=== PATIENT | female | born 1965 | race Caucasian/White ===

== ENCOUNTER 2025-07-11 10:42 | Inpatient (IN) ==
--- NOTE | 2025-07-11 11:07 | Emergency Department Note ---
Impression & Plan Pulmonary embolism, DVT (deep venous thrombosis) ED Provider Note ED Provider Note NAME: MEIR MEJIA AGE:60 SEX: Female : 1965 ARRIVES VIA: Private vehicle INFORMANT: Patient ED PROVIDER(s): Mitzy Herman DO CHIEF COMPLAINT: Referred by PCP HPI: This is a 60-year-old female who presents to the emergency department after undergoing an outpatient CT of the chest today as follow-up from a recent admission for COVID and pneumonia. She states her family doctor called her shortly after she returned home stating that she needed to come to the emergency department because the CAT scan showed extensive blood clots. She denies any prior history in her or any family members of blood clots. No recent prolonged travel. No use of OCPs/HRT. She states today is her last dose of the antibiotic course she was prescribed for her pneumonia. She reports she has been feeling improved over the course of the last week, has been back to work this week. She states she still notes she is slightly winded with exertion but denies chest pain, worsening cough, palpitations, leg swelling, or recurrent fevers. PAST MEDICAL HISTORY:See Below PAST SURGICAL HISTORY:See Below FAMILY HISTORY:See Below SOCIAL HISTORY:See Below HOME MEDICATIONS:See Below ALLERGIES:See Below VITALS:See Below PHYSICAL EXAMINATION: GENERAL: alert, well appearing, well nourished, no distress, non-toxic EYE EXAM: normal conjunctiva, PERRL and EOM's grossly intact OROPHARYNX: no exudate, no erythema, lips, buccal mucosa, and tongue normal and mucous membranes are moist NECK: supple, no nuchal rigidity, no adenopathy, non-tender LUNGS: Clear to auscultation. Normal chest wall mechanics, no w/r/r HEART: no murmurs, S1 normal and S2 normal ABDOMEN: abdomen soft, non-tender, normo-active bowel sounds, no masses, no rebound or guarding. SKIN: no rashes, petechiae, orbruising UPPER EXTREMITIES: upper extremities are grossly normal. FROM, nml pulses b/l. LOWER EXTREMITIES: No pitting edema. FROM, nml pulses b/l. NEURO EXAM: Normal sensorium, cranial nerves II-XII grossly intact, normal speech, no facial droop,nogross weakness of arms, no gross weakness of legs. Gross sensation intact. No ataxia. Vital Signs: reviewed and remarkable Differential Diagnosis: pneumonia, bronchitis, COPD/Asthma exacerbation, pneumothorax, pulmonary embolism, congestive heart failure, acute coronary syndrome, as well as others were considered MEDICAL DECISION MAKING: This is a 60-year-old female presents to the emergency department after she was contacted by her PCP and told to come to the emergency department due to an abnormal outpatient CT of her chest showing pulmonary embolism. Patient with recent admission, COVID and multifocal pneumonia. Patient afebrile and hemodynamically stable on arrival. Labs drawn and sent, IV established, EKG performed at bedside and interpreted by me and the patient was monitored on telemetry. Patient was not hypoxic with ambulatory trial although did appear slightly tachypneic and admitted to slight dyspnea. Given extent of pulmonary embolism as reviewed on CT, patient sent for lower extremity Dopplers additionally. Patient was noted to have a right lower extremity DVT. Case discussed with Dr. Durham as precaution due to complicated case with increased clot burden as well as patient's BMI. She was in favor of admission with heparin drip and eventual conversion to oral anticoagulation. Patient verbalized understanding and was in agreement with this. Case discussed with the hospitalist team for additional evaluation and management. Patient's troponin elevated although is downtrending, and is improved compared to recent admission. Consultation(s): 1503: Discussed with Dr. Durham. 1535: Discussed with JACKI Hernandez hospitalist team, for additional evaluation and mgmt. ER Treatment Provided: See below Diagnostics Interpreted By Me: -ECG: Normal sinus at 92, normal axis, normal intervals, no acute ST/T wave changes -Cardiac Monitoring: An order was placed for continuous cardiac monitoring. The monitor shows a rate of 98 with normal sinus rhythm. -Laboratory studies: As stated above and show below. -Imaging studies: Triage Nursing Note Reviewed Prior/Outside Records Reviewed -patient CTA chest reviewed Critical Care: Critical care of 48 min performed to assess and manage high likelihood of life-threatening pulmonary embolism and DVT, involving labs and imaging performed with assessment to evaluate pulmonary embolism diagnosis with frequent reassessment. This time includes bedside time, treatment discussions with patient/family/consultants, documentation time and excludes procedure time. Past Med/Surg History Problem List (Updated 07/11/25 @ 15:38 by Mitzy Herman DO) DVT (deep venous thrombosis) (Acute) Pulmonary embolism (Acute) Hypoxia (Acute) Elevated troponin (Acute) Medical History COVID Diabetes Hypertension Social History Smoking Status: Never smoker Hx Alcohol Use: No Hx Substance Use: No Preferred Language: Martiniquais Brake Adjuster Required: No Beliefs That Will Affect Care: None Current Living Situation: Spouse Feels Safe at Home: Yes Allergies Allergies Allergy/AdvReac Type Severity Reaction Status Date / Time No Known Allergies Allergy Unverified 07/04/25 11:08 Home Meds Home Medications Medication Instructions Recorded Confirmed albuterol sulfate 90 mcg/actuation 1 puff inhalation UD PRN sob 06/30/25 07/11/25 aerosol inhaler atorvastatin 10 mg tablet 10 mg PO DAILY 06/30/25 07/11/25 fluticasone 250 mcg-salmeterol 50 1 inh inhalation UD 06/30/25 07/11/25 mcg/dose blistr powdr for inhalation hydrochlorothiazide 25 mg tablet 25 mg PO DAILY 06/30/25 07/11/25 losartan 100 mg tablet 100 mg PO DAILY 06/30/25 07/11/25 tirzepatide 10 mg/0.5 mL 0.5 mg subcut WK 06/30/25 07/11/25 subcutaneous pen injector (Erum) Previous Rx's Medication Instructions Recorded prednisone 10 mg tablet See Rx Instructions PO DAILY #30 07/04/25 tabs apixaban 5 mg tablet (Eliquis) 5 mg PO BID #74 tabs 07/11/25 Results & Data (ED) Vital Signs Vital Signs - 24 hr 07/11/25 10:47 07/11/25 11:09 07/11/25 11:18 Temperature 36.3 C L Temperature Source Temporal Artery Scan Pulse Rate 99 H 99 H Pulse Rate from SpO2 Sensor Respiratory Rate 18 21 Blood Pressure 177/92 H 136/81 Blood Pressure Mean 120 106 Pulse Oximetry 96 Pulse Oximetry [Exercises] Pulse Oximetry [Resting] Oxygen Delivery Method Room Air Sepsis New/Unexplained Change in Mental Status No Sepsis Action Taken by Nursing No Action Required 07/11/25 11:31 07/11/25 14:17 07/11/25 15:00 Temperature Temperature Source Pulse Rate 96 H 88 Pulse Rate from SpO2 Sensor Respiratory Rate 17 Blood Pressure 135/73 Blood Pressure Mean 88 Pulse Oximetry 96 Pulse Oximetry [Exercises] 97 Pulse Oximetry [Resting] 97 Oxygen Delivery Method Room Air Sepsis New/Unexplained Change in Mental Status Sepsis Action Taken by Nursing 07/11/25 16:00 Temperature Temperature Source Pulse Rate 93 H Pulse Rate from SpO2 Sensor 92 H Respiratory Rate 13 Blood Pressure 112/88 Blood Pressure Mean 96 Pulse Oximetry 92 Pulse Oximetry [Exercises] Pulse Oximetry [Resting] Oxygen Delivery Method Sepsis New/Unexplained Change in Mental Status Sepsis Action Taken by Nursing Laboratory Data 07/11/25 11:09 07/11/25 11:09 Lab Results 07/11/25 07/11/25 Range/Units 11:09 13:56 WBC 17.08 H (4.8-10.8) K/ul RBC 4.41 (4.20-5.40) M/uL Hgb 11.1 L (12.0-16.0) g/dl Hct 36.3 L (37.0-47.0) % MCV 82.3 (80.0-100.0) fL MCH 25.2 (25.0-34.0) pg MCHC 30.6 L (32.0-36.0) g/dL RDW Std Deviation 55.4 H (36.4-46.3) fL RDW Coeff of Sabas 19.1 H (11.5-14.5) % Plt Count 584 H (130-400) K/uL MPV 9.9 (9.4-12.4) fL Immature Gran % (Auto) 0.6 % Neut % (Auto) 67.2 % Lymph % (Auto) 23.5 % [place] % (Auto) 6.9 % Eos % (Auto) 1.6 % Baso % (Auto) 0.2 % Neut # (Auto) 11.46 H (1.40-6.50) K/uL Lymph # (Auto) 4.02 H (1.20-3.40) K/uL [place] # (Auto) 1.18 H (0.11-0.59) K/uL Eos # (Auto) 0.28 (0.00-0.50) K/uL Baso # (Auto) 0.03 (0.00-0.20) K/uL Immature Gran # (Auto) 0.11 (0.01-0.20) K/uL PT 11.0 (9.0-12.0) Seconds INR 1.0 (0.9-1.1) Sodium 139 (136-145) mmol/L Potassium 3.8 (3.5-5.1) mmol/L Chloride 100 (98-107) mmol/L Carbon Dioxide 27 (21-32) mmol/L Anion Gap 12 H (3-11) BUN 22 (6-23) mg/dl Creatinine 0.79 (0.6-1.2) mg/dl Est Cr Clr Drug Dosing 104.9 ml/min eGFR 85.58 BUN/Creatinine Ratio 27.8 H (10-20) Glucose 109 H (70-99(Fasting)) mg/dl Calcium 9.4 (8.6-10.3) mg/dl Magnesium 2.0 (1.7-2.4) mg/dl Total Bilirubin 0.5 (0.2-1.0) mg/dl AST 16 (13-39) U/L ALT 26 (7-52) U/L Alkaline Phosphatase 93 (34-104) U/L Troponin I High Sens 35.1 H 34.1 H (0-14) pg/ml Total Protein 7.3 (6.0-8.3) gm/dl Albumin 3.8 (3.4-5.0) gm/dl Globulin 3.5 (2.5-4.0) gm/dl Albumin/Globulin Ratio 1.1 (0.9-2) Administered Medications Heparin Sodium/Dextrose (Heparin 65187 Unit/500 Ml D5w) 25,000 units in 500 mls @ 32 mls/hr IV .[id number] [facility]; Protocol Stop: 08/10/25 15:59 Last Admin: 07/11/25 16:05 Dose: 1,600 units/hr, 32 mls/hr Documented By: NRB Co-signed By: ROBERT Discontinued Medications Heparin Sodium (Porcine) (Heparin Sod (Porcine) 1000 Unit/Ml) 7,000 units IV NOW ONE Stop: 07/11/25 15:52 Last Admin: 07/11/25 16:05 Dose: 7,000 units Documented By: NRB Co-signed By: ROBERT Heparin Sodium/Dextrose (Heparin Iv Adult Wt-Based Standard W/ Initial Bolus Protocol) 1 each IV NOW STA; Protocol Stop: 07/11/25 15:36 Last Admin: 07/11/25 16:07 Dose: Not Given Documented By: NRB Imaging Data Radiologist's Impression: Venous Doppler Study 07/11/25 10:59 BILATERAL LOWER EXTREMITY VENOUS DOPPLER HISTORY: new PE found today COMPARISON STUDY: None FINDINGS: No DVT seen at the left lower extremity. There is absent flow and noncompressibility at the peroneal vein consistent with DVT. No other evidence of DVT seen at the right lower extremity. There is a mixed echogenicity finding measuring 6 cm at the right popliteal fossa with extensive shadowing, nonspecific. IMPRESSION: 1. Small amount of DVT at the right lower extremity. 2. No other DVT seen at the lower extremities. 3. Nonspecific finding at the right popliteal fossa. Differential diagnosis includes large Lopez's cysts with internal calcifications and other findings. Follow-up MRI of the right knee is suggested to better evaluate. ACT 112: Positive. There are findings on this exam that require communication between the performing entity and the patient following Patient Test Result Information Act ([place] Act 112) guidelines. Electronically signed by: David Miller M.D. 07/11/2025 12:31 PM Discharge Plan Visit Data Chief Complaint: Referred by Doctor Stated Complaint: BLOOD CLOTS IN CHEST, REF BY DOC ED Provider: Mitzy Herman Discharge Problem: Pulmonary embolism, DVT (deep venous thrombosis) Patient Disposition: Admitted As Inpatient Condition: Fair Discharge Instructions Interventions: ED Discharge Assessment Last Done: 07/11/25 18:01
[2025-07-11 11:31] LABS: Hematocrit (blood only) 36.3 % (37.0-47.0); Hemoglobin 11.1 g/dl (12.0-16.0); Immature Granulocytes # (auto) 0.11 K/uL (0.01-0.20); Immature Granulocytes % (auto) 0.6 %; Mean Corpuscular Hemoglobin 25.2 pg (25.0-34.0); Mean Corpuscular Volume 82.3 fL (80.0-100.0); Platelet Count 584 K/uL (130-400); RDW Standard Deviation 55.4 fL (36.4-46.3); Red Blood Count 4.41 M/uL (4.20-5.40); White Blood Count 17.08 K/ul (4.8-10.8)
[2025-07-11 11:48] LABS: Alanine Aminotransferase 26.0 U/L (7-52); Albumin Globulin Ratio 1.1 (0.9-2); Alkaline Phosphatase 93.0 U/L (34-104); Anion Gap 12.0 (3-11); Bilirubin,Total 0.5 mg/dl (0.2-1.0); Blood Urea Nitrogen 22.0 mg/dl (6-23); Calcium 9.4 mg/dl (8.6-10.3); Carbon Dioxide 27.0 mmol/L (21-32); Chloride 100.0 mmol/L (98-107); Creatinine Clr Calc Pharmacy 104.9 ml/min; Globulin 3.5 gm/dl (2.5-4.0); Glucose 109.0 mg/dl (70-99(Fasting)); Magnesium 2.0 mg/dl (1.7-2.4); Potassium 3.8 mmol/L (3.5-5.1); Sodium 139.0 mmol/L (136-145); Total Protein 7.3 gm/dl (6.0-8.3)
[2025-07-11 11:59] LABS: INR 1.0 (0.9-1.1); Prothrombin Time 11.0 Seconds (9.0-12.0)
--- NOTE | 2025-07-11 12:33 | Ultrasound Report ---
BILATERAL LOWER EXTREMITY VENOUS DOPPLER HISTORY: new PE found today COMPARISON STUDY: None FINDINGS: No DVT seen at the left lower extremity. There is absent flow and noncompressibility at the peroneal vein consistent with DVT. No other evidence of DVT seen at the right lower extremity. There is a mixed echogenicity finding measuring 6 cm at the right popliteal fossa with extensive shadowing , nonspecific. IMPRESSION: 1. Small amount of DVT at the right lower extremity. 2. No other DVT seen at the lower extremities. 3. Nonspecific finding at the right popliteal fossa. Differential diagnosis includes large Lopez's cy sts with internal calcifications and other findings. Follow-up MRI of the right knee is suggested to better evaluate. ACT 112: Positive. There are findings on this exam that require communication between the performing entity and the patient following Patient Test Result Information Act ([place] Act 112) guidelines. Electronically signed by: David Miller M.D. 07/11/2025 12:31 PM
[2025-07-11] MEDS ORDERED: HEPARIN SOD (PORCINE) 1000 UNIT/ML IV ONE (15:51)
--- NOTE | 2025-07-11 15:52 | History & Physical Report ---
"Date of Service July 11, 2025 Assessment & Plan (1) Pulmonary embolism: (2) DVT (deep venous thrombosis): (3) Elevated troponin: Plan Farzaneh a 60F with a PMHx of HTN and diabetes with recent admission 06/30-07/01 for COVID + bacterial pneumonia who presents to the ED after abnormal outpatient CT scan revealing multiple PEs and improvement of prior infectious findings. Will be admitted for IV heparin, echo and further workup. #Pulmonary Emboli | DVT | Elevated Troponin - in the setting of recent decreased mobility and COVID infection. CT scan show Right lobular PE with multiple segmental bilateral PEs. LE Doppler shows small DVT in the right extremity. ED spoke with [facility] - given elevated trop and BMI - recommend heparin drip for a a day or two before converting to DOAC continue heparin drip Check echo Mild troponin elevation - has already peaked and downtrending from prior stay. No chest pain. EKG without signs of ischemia supplemental oxygen if O2 < 90. Incentive spirometer. #Recent COVID + bacteria PNA Completed outpatient antibiotics. Continue prescribed prednisone taper 20mg x 2 days, 10mg x 3 days Mild Leukocytosis likely reactive to steroids Thrombocytosis likely reactive to viral illness - trend CT scan showed improvement of multifocal nodular airspace opacities - but follow up chest CT is recommended in two months #HTN Continue HCTZ and losartan #DMT2 A1c 6.8 07/24 Home regimen - on Monday - HELD Check BSG. SSI with CF only with steroid use Dispo:admit to med/tele DVT proh: heparin drip with plan to covert to DOAC family updated at bedside on admission History of Present Illness Chief Complaint: abnormal CT Primary Care Provider: Valentina Perez MD Farzaneh a 60F with a PMHx of HTN and diabetes who presents to the ED after abnormal outpatient CT scan. Reports that she was feeling well since her recent COVID illness and other viral illness before that and had the CT scan because there was concern for cancer from the last one. Did feel better over the last week and has been back to work. Does have some shortness of breath but overall improving. Denies palpitation or tachycardia. She completed her course of antibiotics today and is still on her prednisone taper with - prednisone 20 x 2 days and 10 x 3 days remaining. Denies calf pain. No recent travel. No hormone therapy. Does report decreased activity with recent illnesses. Wishes to be a full code. ED Course: heparin drip started. Allergies Allergy/AdvReac Type Severity Reaction Status Date / Time No Known Allergies Allergy Unverified 07/04/25 11:08 Home Medications Medication Instructions Recorded Confirmed Type albuterol sulfate 90 mcg/actuation 1 puff inhalation UD PRN sob 06/30/25 07/11/25 History aerosol inhaler atorvastatin 10 mg tablet 10 mg PO DAILY 06/30/25 07/11/25 History fluticasone 250 mcg-salmeterol 50 1 inh inhalation UD 06/30/25 07/11/25 History mcg/dose blistr powdr for inhalation hydrochlorothiazide 25 mg tablet 25 mg PO DAILY 06/30/25 07/11/25 History losartan 100 mg tablet 100 mg PO DAILY 06/30/25 07/11/25 History tirzepatide 10 mg/0.5 mL 0.5 mg subcut WK 06/30/25 07/11/25 History subcutaneous pen injector (Mounjaro) prednisone 10 mg tablet See Rx Instructions PO DAILY #30 07/04/25 07/11/25 Rx tabs apixaban 5 mg tablet (Eliquis) 5 mg PO BID #74 tabs 07/11/25 Rx Past Med/Surg History Problem List (Updated 07/11/25 @ 15:38 by Mitzy Herman DO) DVT (deep venous thrombosis) (Acute) Pulmonary embolism (Acute) Hypoxia (Acute) Elevated troponin (Acute) Medical History COVID Diabetes Hypertension Social History Smoking Status: Never smoker Hx Alcohol Use: No Hx Substance Use: No 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 Beliefs That Will Affect Care: None Current Living Situation: Spouse Feels Safe at Home: Yes Review of Systems Review of Systems: All systems reviewed & are unremarkable except as noted in Subjective Physical Exam Physical Exam: General: NAD, VS as above Resp: normal respiratory effort, lungs clear to auscultation CV: RRR, no murmur, Abd: normal bowel sounds, non tender, Extremities: Moves all extremities, mild right calf tenderness Neuro: A&O x3, Skin: intact, no lesions noted Results & Data Results & Data Vital Signs (Past 12 Hours) Vital Signs Temp Pulse Resp BP Pulse Ox Pulse Ox Pulse Ox 07/11/25 14:17 97 97 07/11/25 11:31 96 H 07/11/25 11:18 99 H 21 07/11/25 11:09 136/81 07/11/25 10:47 97.3 F L 99 H 18 177/92 H 96 O2 Del Method 07/11/25 14:17 Room Air 07/11/25 11:31 07/11/25 11:18 07/11/25 11:09 07/11/25 10:47 Room Air Laboratory Results cbc and chemistry reviewed troponin reviewed coag studies reviewed Diagnostic Findings CTA Chest reviwed LE doppler reviewed Supervising Physician Co-Signing Physician Notes I personally examined the patient and verified all huber points of history and exam, discussed case, and agree with decision making with Johan Rodas PAC feeling better than she was last week. Here due to abnormal CT scan showing PEs. Vitals noted, in general she is awake and alert pleasant no distress. HEENT normocephalic atraumatic mucous membranes moist. Breathing unlabored no accessory muscle use good effort. Skin without rashes pallor or icterus. Neuro without focal deficits. PEswith parenchymal densities resolvinghopefully her abnormal CT findings from last week were just a pneumonia that is improving. In this context the PEs would almost certainly be provoked from COVID/pneumonia and immobility from being sickanticoagulated. Follow into tomorrowseems to be a good candidate for DOAC and outpatient follow-up. With that in mind I sent Eliquis to the pharmacy so that they could ensure affordability. Abnormal chest CTappears to be resolving compared to previous. This is reassuring. Obviously will need to follow to resolution. Otherwise as per last discharge. PG Care Time/CCT Total # of Minutes Spent Total Time Spent with Patient: Total time spent is greater than 50% in coordination of care (as documented) at patient's floor/unit and/or counseling patient: Coding Level of Care Code 45406 INT INP/OBS CARE 3/75MIN Diagnoses Pulmonary embolism I26.99 DVT (deep venous thrombosis) I82.409 Elevated troponin R79.89"
[2025-07-11] MEDS: HEPARIN SOD (PORCINE) 1000 UNIT/ML IV ONE (16:05)
[2025-07-11] MEDS: HEPARIN 25000 UNIT/500 ML D5W 25,000 UNITS/500 ML BAG IV SCH (16:05)
[2025-07-11] MEDS: Heparin IV Adult Wt-Based Standard w/ INITIAL Bolus Protocol IV STA (16:07)
[2025-07-11] MEDS ORDERED: GLUCOSE 40% GEL 15 GM TUBE PO PRN (18:33)
[2025-07-11] MEDS ORDERED: GLUCOSE 10 TAB/TUBE PO PRN (18:33)
[2025-07-11] MEDS ORDERED: ACETAMINOPHEN 325 MG TAB PO PRN (18:33)
[2025-07-11] MEDS ORDERED: GLUCAGON FOR INJ 1 MG VIAL SQ PRN (18:33)
[2025-07-11] MEDS ORDERED: MELATONIN 3 MG TAB PO PRN (18:33)
[2025-07-11] MEDS ORDERED: DEXTROSE 50% 50 ML SYRINGE IV PRN (18:33)
[2025-07-11] MEDS ORDERED: ONDANSETRON INJ 2 MG/ML 2 ML VIAL IV PRN (18:33)
[2025-07-11] MEDS ORDERED: CARBOHYDRATES FOR HYPOGLYCEMIA PO PRN (18:33)
[2025-07-11] MEDS ORDERED: ALBUTEROL HFA 8 GM INHALER INH PRN (18:33)
[2025-07-11] MEDS ORDERED: POLYETHYLENE (MIRALAX) 17 GM PACK PO PRN (18:33)
[2025-07-11] MEDS: INSULIN ASPART PER UNIT CHARGE SC SCH (20:41)
[2025-07-11 23:33] LABS: ANTI-Xa, UFH(UnfractionatedHep 0.44 IU/ml (0.3-0.7)
[2025-07-12 00:13] VITALS: TEMP 97.5
--- NOTE | 2025-07-12 05:51 | Electrocardiogram Report ---
Test Reason : Blood Pressure : */* mmHG Vent. Rate : 92 BPM Atrial Rate : 92 BPM P-R Int : 134 ms QRS Dur : 88 ms QT Int : 352 ms P-R-T Axes : -19 -10 61 degrees QTcB Int : 435 ms Normal sinus rhythm Moderate voltage criteria for LVH, may be normal variant ( R in aVL , [place] product ) Poor R wave progression, consider anterior NE vs. lead placement vs. LVH Abnormal ECG When compared with ECG of 30-Jun-2025 13:03, No significant change was found Confirmed by Augustus Watkins ([id number]) on 07/12/2025 5:50:51 AM Referred By: Nunu Meier Confirmed By: Augustus Watkins
[2025-07-12 06:44] LABS: Hematocrit (blood only) 29.5 % (37.0-47.0); Hemoglobin 9.0 g/dl (12.0-16.0); Mean Corpuscular Hemoglobin 24.6 pg (25.0-34.0); Mean Corpuscular Volume 80.6 fL (80.0-100.0); Platelet Count 465 K/uL (130-400); RDW Standard Deviation 54.8 fL (36.4-46.3); Red Blood Count 3.66 M/uL (4.20-5.40); White Blood Count 11.79 K/ul (4.8-10.8)
[2025-07-12 07:07] LABS: ANTI-Xa, UFH(UnfractionatedHep 0.32 IU/ml (0.3-0.7)
[2025-07-12 07:15] LABS: Anion Gap 7.0 (3-11); Blood Urea Nitrogen 20.0 mg/dl (6-23); Calcium 8.5 mg/dl (8.6-10.3); Carbon Dioxide 29.0 mmol/L (21-32); Chloride 102.0 mmol/L (98-107); Creatinine Clr Calc Pharmacy 128.5 ml/min; Glucose 139.0 mg/dl (70-99(Fasting)); Potassium 4.0 mmol/L (3.5-5.1); Sodium 138.0 mmol/L (136-145)
[2025-07-12 07:28] VITALS: BP 155/89; RESP 16; O2SAT 95
[2025-07-12] MEDS: hydroCHLOROthiazide 25 MG TAB PO SCH (10:00)
[2025-07-12] MEDS: APIXABAN 5 MG TABLET PO ONE (10:01)
[2025-07-12] MEDS: LOSARTAN POTASSIUM 50 MG TAB PO SCH (10:01)
[2025-07-12] MEDS: ATORVASTATIN 10 MG TAB PO SCH (10:02)
[2025-07-12] MEDS: FLUTICASONE/VILANTEROL 200/25MCG 14 PUFFS/INHALER INH SCH (10:02)
[2025-07-12 10:39] VITALS: PULSE 85
--- NOTE | 2025-07-12 16:55 | Discharge Summary ---
Discharge Summary Date of Service July 12, 2025 Principal Dx & Hospital Course #1 = Principal Diagnosis (1) Pulmonary embolism: (2) DVT (deep venous thrombosis): (3) Elevated troponin: Plan Farzaneh a 60F with a PMHx of HTN and diabetes with recent admission 06/30-07/01 for COVID + bacterial pneumonia who presents to the ED after abnormal outpatient CT scan revealing multiple PEs and improvement of prior infectious findings. Will be admitted for IV heparin, echo and further workup. #Pulmonary Emboli | DVT | Elevated Troponin - in the setting of recent decreased mobility and COVID infection. CT scan show Right lobular PE with multiple segmental bilateral PEs. LE Doppler shows small DVT in the right extremity. ED spoke with [facility] - given elevated trop and BMI - recommend heparin drip for a a day or two before converting to DOAC initially on heparin dripdid welltransition to DOAC. Safe/stable for home. Mild troponin elevation - has already peaked and downtrending from prior stay. No chest pain. EKG without signs of ischemia Given provoking factors, she seems to be a good candidate for "treating the clot" rather than looking at her as having a chronic propensity towards andres ttingi.e. probably could treat with 3 months of anticoagulation (Eliquis 10 mg twice daily times the first week and then 5 mg twice daily thereafter) #Recent COVID + bacteria PNA Completed outpatient antibiotics. Continue prescribed prednisone taper 20mg x 2 days, 10mg x 3 days appears to be improving. There was significant concern based on the radiology reading of her prior CTit is quite reassuring that things are clearing. Discussed the radiologists findings that seem much more consistent with a resolving pneumoniadiscussed the recommendation for repeat CT in 2 months (and discussed that while it would not necessarily be totally clear at a month, if she has ongoing anxiety about the situation a repeat CT in a month would be a reasonable way to lay the anxiety to rest, although it would probably still necessitate a follow-up CT later to ensure total clearing) safe/stable for home Notes For Next Care Provider Medication Changes From Visit Eliquis 10 mg twice daily times a week and then 5 mg twice daily. Admission HPI Per Admitting Provider Farzaneh raymundo 60F with a PMHx of HTN and diabetes who presents to the ED after abnormal outpatient CT scan. Reports that she was feeling well since her recent COVID illness and other viral illness before that and had the CT scan because there was concern for cancer from the last one. Did feel better over the last week and has been back to work. Does have some shortness of breath but overall improving. Denies palpitation or tachycardia. She completed her course of antibiotics today and is still on her prednisone taper with - prednisone 20 x 2 days and 10 x 3 days remaining. Denies calf pain. No recent travel. No hormone therapy. Does report decreased activity with recent illnesses. Wishes to be a full code. ED Course: heparin drip started. Discharge Exam and general she is awake and alert pleasant no distress. HEENT normocephalic atraumatic mucous membranes moist. Breathing unlabored no accessory muscle use good effort. Skin without rashes pallor or icterus. Neuro without focal deficits. Updated Medication List Medication Instructions Recorded Confirmed Type albuterol sulfate 90 mcg/actuation 1 puff inhalation UD PRN sob 06/30/25 07/11/25 History aerosol inhaler atorvastatin 10 mg tablet 10 mg PO DAILY 06/30/25 07/11/25 History fluticasone 250 mcg-salmeterol 50 1 inh inhalation UD 06/30/25 07/11/25 History mcg/dose blistr powdr for inhalation hydrochlorothiazide 25 mg tablet 25 mg PO DAILY 06/30/25 07/11/25 History losartan 100 mg tablet 100 mg PO DAILY 06/30/25 07/11/25 History tirzepatide 10 mg/0.5 mL 0.5 mg subcut WK 06/30/25 07/11/25 History subcutaneous pen injector (Mounjaro) prednisone 10 mg tablet See Rx Instructions PO DAILY #30 07/04/25 07/11/25 Rx tabs apixaban 5 mg tablet (Eliquis) 5 mg PO BID #74 tabs 07/11/25 Rx Hospital Stay Data Consultations 07/11/25 15:35 ED Decision to Admit Stat Diagnostic Imagining Performed 07/11/25 10:59 US venous doppler LE BI Stat Pending Results Patient Have Any Pending Studies at Discharge: No Discharge Instructions Given to Patient (Per Discharging Provider) pulmonary emboli (blood clots in the lungs) as we discussed, this is not at all surprising in the context of COVID (which is known to increase people's risk of clotting temporarily) and pneumonias in general (which are inflammatory enough to increase people's risk of clotting temporarily, and generally while people have a pneumonia and they are recovering they are far less mobilecreating stagnant venous blood flow which also increases people's risk of clotting) - fortunately you look greatand as we discussed, really it is more going to be a matter of doing a blood thinner for probably about 3 months to prevent the clots from growing (remember the blood thinner does not dissolve the clotsyour body will take care of them the best that it can, clot busting medicines cause so much bleeding that we only use them and truly catastrophically bad situationsand even then it is questionable how much they helpand so the blood thinner really keeps the situation from progressing/worsening and your body takes care of the rest) - because these clots seemed to be so provoked by the COVID and being immobile/less mobile in general, this is 1 of those times that we can look at it as probably about 3 months of blood thinner total (for most people with the look at a much higher rate of recurrenceand so then for most people with clots it is being on a blood thinner at full dosing for 3-6 months, followed by chronic low dosing; with you I do not see anything that makes me suspect that we would need to do that chronic low dosinggiven that this all seems to have been acute circumstances) - as we discussed, when someone is on a blood thinner, the main side effect is of course an increased chance of bleeding. With blood thinners like Eliquis I see it far less then when we only had Coumadin. If there is bleeding, typically most bleeding is "annoying" more than dangerousthis bleeding is usually going to be something like a nosebleed or a cut that just will not stop bleeding. As a good role for safety, if you have any bleedinggrab a paper towel and hold pressure, and then look at the clock. Most bleeding will resolve with 10 minutes of pressure (but if you do not look at the clock it is easy for 2 minutes to feel like 10!), and if the bleeding does not resolve with 10 minutes of pressurethen maybe the nosebleed needs packed or cauterized; maybe the cut needs a stitch. This also adds a role for safety because if it is the much more rare bleeding but you cannot put pressure on it (such as pooping blood or vomiting blood)then you would know to come straight back to me at the hospital. (And as we discussed, most of the time those situations resolve themselves, are fairly easy to stabilize, and usually look far scarier than the actual threat that they impose) your CT scan appears to be clearingand so while we definitely still need to follow through to ensure everything goes away, the radiologist to read your CT this time feels much more comfortable it is probably a resolving pneumonia. He recommended a repeat CT scan in about 2 months (the reason for that being pneumonias do take a very long time to improve on imaging, and in 2 months it would be enough for a major improvement to have occurred)as we discussed, however, if the situation is causing a lot of anxiety, it would not be crazy to get a repeat CT in a month as well just for your peace of mind (a month would probably not be long enough for this to have totally cleared, but we should see ongoing improvements that could let you "exhale" even more. That said, the radiologist to read your scans this time is one of the best I have ever worked with, and while he still definitely recommends following things through to ensure it goes away, his opinion is that the findings strongly favor a resolving pneumonia. Total Time Total Time Spent Total Time Spent (In Minutes): Greater than 30
--- NOTE | 2025-07-12 16:55 | Billing Data ---
Date of Service July 12, 2025 Coding Level of Care Code 71045 INP/OBS DISCH >30 MIN
--- NOTE | 2025-07-13 07:05 | XCELERA ---
[id number]
== END 2025-07-12 10:49 | disposition home or self-care (01) | DRG 175 ==
LOC: SUATTDRO → ED 10:42 → 2W 16:02